=== PATIENT | male | born 1990 | race Caucasian/White ===

== ENCOUNTER 2018-05-15 01:11 | Emergency (ER) | payer OTHER ==
[~2018-05-15] VITALS: Ht 170.2 cm; Wt 112.5 kg
[2018-05-15] MEDS ORDERED: AMLODIPINE BESYL5 MG (01:21)
[2018-05-15] MEDS ORDERED: PEPCID40 MG PO (05:19)
[2018-05-15] MEDS ORDERED: ALLEGRA ALLERG180 MG PO (05:19)
[2018-05-15] MEDS ORDERED: MEDROL8 MG PO (05:19)
== END 2018-05-15 05:28 | disposition home or self-care (01) ==
LOC: ER 01:11
DX: L50.8 Other urticaria (principal)